=== PATIENT | male | born 1985 | race Caucasian/White ===

== ENCOUNTER 2017-03-06 15:45 | Emergency (ER) | payer BC ==
[~2017-03-06] VITALS: Ht 193 cm; Wt 118.0 kg
[2017-03-06] MEDS ORDERED: TETANUS, DIPHTHERIA, PERTUSSIS VAC/PF 0.5ML (>7YR OLD) IM ONE (19:30)
[2017-03-06] MEDS ORDERED: LIDOCAINE/EPINEPHR/TETRACAINE 3ML TP ONE (19:30)
[2017-03-06] MEDS ORDERED: LIDOCAINE HCL 1%/EPI 1:200,000 30 ML VIAL MC ONE (19:30)
[2017-03-06 20:50] VITALS: BP 129/70
== END 2017-03-06 20:58 | disposition home or self-care (01) ==
LOC: ER 18:49
DX: L02.415 Cutaneous abscess of right lower limb (principal)
CPT/HCPCS: 10060; 90471; 90715; 99283; Z7610